=== PATIENT | female | born 1985 | race Caucasian/White ===

== ENCOUNTER → 2023-08-09 08:03 | Outpatient (REF) | payer BC, SELFPAY | LOC: PNTC 08:03 | PROVIDERS: ATTENDING PHYSICIAN Obstetrics & Gynecology | DX: Z36.0 Encounter for antenatal screening for chromosomal anomalies (principal); Z36.82 Encounter for antenatal screening for nuchal translucency; O35.8XX0 Maternal care for other (suspected) fetal abnormality and damage, not applicable or unspecified | CPT/HCPCS: 36415; 76801; 76813 ==

== ENCOUNTER → 2023-10-03 07:06 | Outpatient (REF) | payer BC, SELFPAY | LOC: PNTC 07:06 | PROVIDERS: ATTENDING PHYSICIAN Obstetrics & Gynecology | DX: O09.529 Supervision of elderly multigravida, unspecified trimester (principal); O35.5XX0 Maternal care for (suspected) damage to fetus by drugs, not applicable or unspecified | CPT/HCPCS: 76811 ==

== ENCOUNTER 2023-12-27 13:49 | Inpatient (IN) | payer BC, SELFPAY ==
[2023-12-27 14:19] VITALS: BP 137/84; BMI 28.7
[2023-12-27 14:31] LABS: % Basophils 0.5 % (0-2); % Immature Granulocytes 3.2 % (0-0.5); % Lymphocytes 13.9 % (20.5-51.1); % Monocytes 5.1 % (1.7-9.3); % Neutrophils 76.3 % (42.2-75.2); Absolute Basophils 0.1 10^3/uL (0-0.2); Absolute Eosinophils 0.2 10^3/uL (0-0.7); Absolute Immature Granulocytes 0.5 10^3/uL (0-0.05); Absolute Lymphocytes 2.1 10^3/uL (1.2-3.4); Absolute Monocytes 0.8 10^3/uL (0.1-0.6); Absolute Neutrophils 11.6 10^3/uL (1.4-6.5); Hematocrit 28.6 % (37.0-47.0); Hemoglobin 9.8 g/dL (12.0-16.0); Mean Corp Hgb Conc. 34.3 g/dL (33.0-37.0); Mean Corpuscular Hgb 28.7 pg (27.0-31.0); Mean Corpuscular Volume 83.9 fL (81.0-99.0); Mean Platelet Volume 13.5 fL (7.4-10.4); Nucleated Red Blood Cells % 0 %; Platelet Count 166 10^3/uL (130-400); Red Blood Cell Count 3.41 10^6/uL (4.20-5.40); Red Cell Dist. Width 13.8 % (11.5-14.5); White Blood Cell Count 15.2 10^3/uL (4.8-10.8)
[2023-12-27 14:36] LABS: ALT (SGPT) 16 U/L (0-35); AST (SGOT) 33 U/L (14-36); Albumin 3.4 g/dl (3.5-5.0); Alkaline Phosphatase 147 U/L (38-126); Blood Urea Nitrogen 21 mg/dl (7-17); Calcium 9.9 mg/dl (8.4-10.2); Carbon Dioxide 19 mmol/L (22-30); Chloride 104 mmol/L (98-107); Estimated Creatinine Clearance 91 ml/min; Glucose 87 mg/dl (70-99); Sodium 135 mmol/L (135-145); Total Bilirubin 0.3 mg/dl (0.2-1.3); eGFR > 60.00
[2023-12-27] MEDS: MORPHINE SULFATE 2 MG IV (15:27)
[2023-12-27 15:28] LABS: Urine Albumin 3+ (Neg - Trace); Urine Bilirubin 1+ (Negative); Urine Character Clear (Clear); Urine Color Yellow; Urine Glucose Negative (Negative); Urine Ketone Trace (Negative); Urine Leukocyte Trace (Negative); Urine Nitrite Negative (Negative); Urine Occult Blood 1+ (Negative); Urine Specific Gravity 1.025 (<1.030); Urine Urobilinogen Negative (Neg - 1+)
[2023-12-27] MEDS: CELESTONE SOLUSPAN 2 MG IM (15:30)
[2023-12-27 15:40] LABS: Urine Bacteria Many (Negative)
[2023-12-27 16:02] LABS: APTT 26.9 Sec (23.4-35.0); INR 0.97; PT 12.7 Sec (11.4-14.6)
[2023-12-27 16:03] LABS: Fibrinogen 388 MG/DL (199-459)
[2023-12-27] MEDS: ANCEF 10 IV (16:24)
[2023-12-27] MEDS: BICITRA 30 ML PO (16:24)
[2023-12-27] MEDS: TYLENOL 1000 MG PO (16:24)
[2023-12-27 16:57] LABS: Cord ABG Comment CORD BLOOD
[2023-12-27 16:58] LABS: B.E. Cord ABG -7.9 mMOL/L; HCO3 Cord ABG 22.1 mmol/L; O2 Saturation % Cord ABG 16.2 %; PCO2 Cord ABG 62 mmHg; PO2 Cord ABG 11 mmHg; pH Cord ABG 7.16
[2023-12-27 17:01] LABS: B.E. Cord ABG -9.3 mMOL/L; HCO3 Cord ABG 21.5 mmol/L; O2 Saturation % Cord ABG 10.9 %; PCO2 Cord ABG 66 mmHg; PO2 Cord ABG 8 mmHg; pH Cord ABG 7.12
[2023-12-27 18:14] LABS: Urine Protein 1720 mg/dl
[2023-12-27 18:35] LABS: Protein/creatinine Ratio 4.2
[2023-12-27] MEDS: MAGNESIUM SULFATE 100 IV (19:38)
[2023-12-27] MEDS: MAGNESIUM SULFATE 40 GRAM 1000 IV (20:06)
[2023-12-27] MEDS: CYMBALTA DELAYED RELEASE 60 MG PO (22:11)
[2023-12-27] MEDS: BUSPAR 10 MG PO (22:11)
[2023-12-27] MEDS: BENADRYL 25 MG PO (22:55)
[2023-12-28 01:48] LABS: Hematocrit 23.2 % (37.0-47.0); Hemoglobin 7.9 g/dL (12.0-16.0); Mean Corp Hgb Conc. 34.1 g/dL (33.0-37.0); Mean Corpuscular Volume 85.3 fL (81.0-99.0); Mean Platelet Volume 13.9 fL (7.4-10.4); Platelet Count 141 10^3/uL (130-400); Red Blood Cell Count 2.72 10^6/uL (4.20-5.40); Red Cell Dist. Width 13.8 % (11.5-14.5); White Blood Cell Count 19.3 10^3/uL (4.8-10.8)
[2023-12-28 01:55] LABS: Magnesium 5.4 mg/dl (1.6-2.3)
[2023-12-28] MEDS: BENADRYL 25 MG PO (05:45)
[2023-12-28] MEDS: MOTRIN 600 MG PO ×3 (05:45→20:48)
[2023-12-28 07:14] LABS: Hematocrit 21.4 % (37.0-47.0); Hemoglobin 7.3 g/dL (12.0-16.0); Mean Corp Hgb Conc. 34.1 g/dL (33.0-37.0); Mean Corpuscular Hgb 29.1 pg (27.0-31.0); Mean Corpuscular Volume 85.3 fL (81.0-99.0); Mean Platelet Volume 12.9 fL (7.4-10.4); Platelet Count 122 10^3/uL (130-400); Red Blood Cell Count 2.51 10^6/uL (4.20-5.40); White Blood Cell Count 16.7 10^3/uL (4.8-10.8)
[2023-12-28] MEDS: LR 1000 IV (08:00)
--- NOTE | 2023-12-28 12:40 | W.PN.ANS.POP ---
Anesthesia Post Operative
- Anesthesia Post Op Note
Vital Signs Stable-See Nursing Note: Yes
Airway Patent: Yes
Adequate Pain Control: Yes
Change in Mental Status: No
Current Postoperative Nausea & Vomiting: No
Anesthesia Complications: No
General Anesthetic Recall: No
Unplanned Admission: No
Post Op Hydration Adequate: Yes
[2023-12-28] MEDS: MAGNESIUM SULFATE 40 GRAM 1000 IV (15:21)
[2023-12-28 19:03] LABS: Hematocrit 22.1 % (37.0-47.0); Hemoglobin 7.5 g/dL (12.0-16.0); Mean Corp Hgb Conc. 33.9 g/dL (33.0-37.0); Mean Corpuscular Hgb 29.6 pg (27.0-31.0); Mean Corpuscular Volume 87.4 fL (81.0-99.0); Mean Platelet Volume 13.3 fL (7.4-10.4); Platelet Count 190 10^3/uL (130-400); Red Blood Cell Count 2.53 10^6/uL (4.20-5.40); Red Cell Dist. Width 14.3 % (11.5-14.5); White Blood Cell Count 17.9 10^3/uL (4.8-10.8)
[2023-12-28 19:14] LABS: ALT (SGPT) 18 U/L (0-35); AST (SGOT) 44 U/L (14-36); Albumin 3.2 g/dl (3.5-5.0); Alkaline Phosphatase 131 U/L (38-126); Blood Urea Nitrogen 14 mg/dl (7-17); Calcium 6.7 mg/dl (8.4-10.2); Carbon Dioxide 25 mmol/L (22-30); Chloride 102 mmol/L (98-107); Estimated Creatinine Clearance 91 ml/min; Glucose 119 mg/dl (70-99); LDH 421 U/L (120-246); Potassium 4.4 mmol/L (3.5-5.1); Sodium 134 mmol/L (135-145); Total Bilirubin 0.2 mg/dl (0.2-1.3); Total Protein 5.7 g/dl (6.3-8.2); eGFR > 60.00
[2023-12-28] MEDS: MYLICON 80 MG PO (20:48)
[2023-12-28] MEDS: TYLENOL 650 MG PO (20:49)
[2023-12-28] MEDS: BUSPAR 10 MG PO (22:20)
[2023-12-28] MEDS: CYMBALTA DELAYED RELEASE 60 MG PO (22:20)
[2023-12-29] MEDS: PERCOCET 5/325 1 TABLET PO ×4 (00:01→21:06)
[2023-12-29] MEDS: TYLENOL 650 MG PO (05:14)
[2023-12-29] MEDS: MOTRIN 600 MG PO ×4 (05:14→22:32)
[2023-12-29] MEDS: MYLICON 80 MG PO ×3 (05:14→22:32)
[2023-12-29 05:56] LABS: Hematocrit 21.5 % (37.0-47.0); Hemoglobin 7.4 g/dL (12.0-16.0); Mean Corp Hgb Conc. 34.4 g/dL (33.0-37.0); Mean Corpuscular Hgb 30.7 pg (27.0-31.0); Mean Corpuscular Volume 89.2 fL (81.0-99.0); Mean Platelet Volume 12.6 fL (7.4-10.4); Platelet Count 164 10^3/uL (130-400); Red Blood Cell Count 2.41 10^6/uL (4.20-5.40); Red Cell Dist. Width 14.6 % (11.5-14.5); White Blood Cell Count 17.2 10^3/uL (4.8-10.8)
[2023-12-29 06:10] LABS: ALT (SGPT) 18 U/L (0-35); AST (SGOT) 43 U/L (14-36); Albumin 3.2 g/dl (3.5-5.0); Alkaline Phosphatase 128 U/L (38-126); Blood Urea Nitrogen 20 mg/dl (7-17); Calcium 7.2 mg/dl (8.4-10.2); Carbon Dioxide 27 mmol/L (22-30); Chloride 103 mmol/L (98-107); Estimated Creatinine Clearance 81 ml/min; Glucose 86 mg/dl (70-99); LDH 441 U/L (120-246); Potassium 4.9 mmol/L (3.5-5.1); Sodium 138 mmol/L (135-145); Total Bilirubin 0.1 mg/dl (0.2-1.3); Total Protein 5.7 g/dl (6.3-8.2); eGFR > 60.00
[2023-12-29] MEDS: FEOSOL 325 MG PO (10:31)
[2023-12-29] MEDS: SENOKOT-S 1 TABLET PO (16:47)
[2023-12-29] MEDS: CYMBALTA DELAYED RELEASE 60 MG PO (22:31)
[2023-12-29] MEDS: BUSPAR 10 MG PO (22:32)
[2023-12-30] MEDS: TRANDATE 200 MG PO ×3 (00:45→19:54)
[2023-12-30] MEDS: PERCOCET 5/325 1 TABLET PO ×6 (01:14→23:58)
[2023-12-30] MEDS: MOTRIN 600 MG PO ×3 (04:25→19:17)
[2023-12-30 05:25] LABS: ALT (SGPT) 17 U/L (0-35); AST (SGOT) 37 U/L (14-36); Albumin 2.9 g/dl (3.5-5.0); Alkaline Phosphatase 108 U/L (38-126); Blood Urea Nitrogen 19 mg/dl (7-17); Carbon Dioxide 26 mmol/L (22-30); Chloride 107 mmol/L (98-107); Estimated Creatinine Clearance 91 ml/min; Glucose 80 mg/dl (70-99); Potassium 4.8 mmol/L (3.5-5.1); Sodium 142 mmol/L (135-145); Total Bilirubin 0.2 mg/dl (0.2-1.3); Total Protein 5.4 g/dl (6.3-8.2); eGFR > 60.00
[2023-12-30] MEDS: SENOKOT-S 1 TABLET PO (07:12)
[2023-12-30] MEDS: FEOSOL 325 MG PO (07:12)
[2023-12-30] MEDS: MYLICON 80 MG PO (11:00)
[2023-12-30 11:54] LABS: Syphilis/T. pallidum Ab Reflex Negative (Negative)
[2023-12-30] MEDS: CYMBALTA DELAYED RELEASE 60 MG PO (22:04)
[2023-12-30] MEDS: BUSPAR 10 MG PO (22:04)
[2023-12-31] MEDS: MYLICON 80 MG PO (00:07)
[2023-12-31] MEDS: PERCOCET 5/325 1 TABLET PO ×2 (04:04→10:38)
[2023-12-31] MEDS: TRANDATE 400 MG PO (06:50)
[2023-12-31] MEDS: MOTRIN 600 MG PO ×2 (06:54→15:14)
[2023-12-31] MEDS: TYLENOL 650 MG PO (15:14)
[2023-12-31] MEDS: FEOSOL 325 MG PO (15:17)
--- NOTE | 2023-12-31 16:00 | W.DS.TRANS ---
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
-
Discharge Instructions:
Discharge Diagnosis/Procedures Section
Diet No restrictions
Driving Restrictions No driving for 2 weeks
Instructions:
Stand-Alone Forms: LDRP Delivery
LDRP Hypertensive Disorders
Changes to Home Medications: Yes
Discharge Medications:
DC Medications w/original date entered in [employer]
Sangeeta Allergy 1 tab PO DAILY PRN ALLERGY 12/27/23
BuSpar 10 mg PO DAILY 12/27/23
Cymbalta 60 mg PO HS 12/27/23
melatonin 1 mg PO 1XD 12/27/23
acetaminophen 325 mg tablet 650 mg (2 x 325 mg) PO Q4HPRN PRN mild pain #0 tabs 12/30/23
ferrous sulfate 325 mg (65 mg iron) tablet (FeroSul) 325 mg PO DAILY #0 tabs 12/30/23
ibuprofen 600 mg tablet 600 mg PO Q6HPRN PRN cramps #45 tabs 12/30/23
oxycodone-acetaminophen 5 mg-325 mg tablet 1 tab PO Q4HPRN PRN moderate pain #15 tabs 12/30/23
sennosides 8.6 mg-docusate sodium 50 mg tablet 1 tab PO DAILYPRN PRN constipation #0 tabs 12/30/23
labetalol 200 mg tablet 400 mg (2 x 200 mg) PO BID #90 tabs 12/31/23
Home Medication Changes
Pending Results: No
--- NOTE | 2023-12-31 16:09 | W.DCSUMMARY ---
Discharge Summary
Discharge Data
Date of Admission: 12/27/23
Date of Discharge: 12/31/23
-
Pending Results: No
Hospital Course
Patient is a 38yo who present to labor and delivery on 12/26 with complaints of abdominal pain. While on labor and delivery, patient started having vaginal bleeding and there was a deceleration on the heart rate tracing. Patient was
diagnosed with a placental abruption and underwent primary low transverse section delivering a female infant. The section was uncomplicated. Placenta was noted to have a 25% abruption. Following the section, patient had
elevated blood pressures and was diagnosed with preeclampsia. She was given 24 hours of magnesium. On postoperative day three, she was noted to have elevated blood pressures and was started on labetalol 200mg twice daily. She was kept an
additional day to monitor her blood pressures. On postoperative day four, she had continued elevated blood pressures and labetalol was increased to 400mg twice daily. She was monitored until the afternoon and blood pressures were well controlled.
She was asymptomatic for preeclampsia. She was meeting all other postoperative and milestone. was doing well in NICU. Patient was deemed stable for discharge home. Discharge instructions and return precautions were discussed and
all questions answered prior to discharge. She was instructed to follow up on Tuesday for a blood pressure check, 2 weeks for an incision check, and in 6 weeks for her routine visit.
Discharge Plan
-
Patient Disposition: Home (Routine Discharge)
Discharge Diagnosis/Procedures: Section
Condition: Good
Diet: No restrictions
Driving Restrictions: No driving for 2 weeks
Stand Alone Forms: LDRP Delivery, LDRP Hypertensive Disorders
Referrals:
Quentin Spring MD [Active] - (please call the office to make a 2 week post-op visit to check the incision, followed by a 6 week visit)
UNKNOWN - PT NOT,INTERVIEWE [Family Provider] -
Prescriptions:
New
ferrous sulfate [FeroSul] 325 mg (65 mg iron) Tablet
325 mg PO DAILY Qty: 0 0RF
sennosides-docusate sodium 8.6-50 mg Tablet
1 tab PO DAILYPRN PRN (Reason: constipation) Qty: 0 0RF
oxycodone-acetaminophen 5-325 mg Tablet
1 tab PO Q4HPRN PRN (Reason: moderate pain) Qty: 15 0RF
ibuprofen 600 mg Tablet
600 mg PO Q6HPRN PRN (Reason: cramps) Qty: 45 0RF
acetaminophen 325 mg Tablet
650 mg PO Q4HPRN PRN (Reason: mild pain) Qty: 0 0RF
labetalol 200 mg Tablet
400 mg PO BID Qty: 90 0RF
Continued
melatonin capsule
1 mg PO 1XD
Sangeeta Allergy
1 tab PO DAILY PRN (Reason: ALLERGY)
BuSpar
10 mg PO DAILY
Cymbalta capsule
60 mg PO HS
Discharge Orders:
Discharge Patient (As Directed); Ordered 12/31/23
Ordered By: Mimi Holden
Discharge Date and Time
Print Language: KOREAN
== END 2023-12-31 16:36 | disposition home or self-care (01) | DRG 788 ==
LOC: LDRP 13:49
PROVIDERS: Obstetrics & Gynecology; ADMITTING PHYSICIAN Obstetrics & Gynecology
PROC: 10D00Z1 Extraction of Products of Conception, Low, Open Approach (ICD-10-PCS; 2023-12-27)
DX: O45.93 Premature separation of placenta, unspecified, third trimester (principal); O69.81X0 Labor and delivery complicated by cord around neck, without compression, not applicable or unspecified; O14.94 Unspecified pre-eclampsia, complicating childbirth; O76 Abnormality in fetal heart rate and rhythm complicating labor and delivery; Z3A.32 32 weeks gestation of pregnancy; Z37.0 Single live birth
CPT/HCPCS: 88307; 76816; 80053; 81003; 81015; 82570; 82803; 83615; 83735; 84156; 85025; 85027; 85384; 85460; 85610; 85730; 86780; 86850; 86900; 86901; 86920; 87070; 87086

== ENCOUNTER 2024-01-01 05:56 | Inpatient (IN) | payer BC, SELFPAY ==
[2024-01-01] VITALS (9 sets, daily range): BP systolic 115–194; BP diastolic 60–96; BMI 28.0
[2024-01-01 04:54] LABS: Hematocrit 20.6 % (37.0-47.0); Hemoglobin 6.8 g/dL (12.0-16.0); Mean Corpuscular Volume 90.7 fL (81.0-99.0); Mean Platelet Volume 11.2 fL (7.4-10.4); Platelet Count 224 10^3/uL (130-400); Red Blood Cell Count 2.27 10^6/uL (4.20-5.40); Red Cell Dist. Width 14.8 % (11.5-14.5); White Blood Cell Count 11.5 10^3/uL (4.8-10.8)
--- NOTE | 2024-01-01 05:00 | ED.GENMED ---
History of Present Illness
<Steph Zaragoza DO - Last Filed: 01/01/24 05:34>
General
Chief Complaint: Abdominal Pain
Time Seen by Provider: 01/01/24 05:00
<Trudi Jacobs MD, Resident - Last Filed: 01/01/24 05:40>
General
Source: patient and spouse
Exam Limitations: none
Nursing documentation reviewed up to this point in time: agreed with
History of Present Illness
History of Present Illness:
38-year-old female 101 with the recent on 12/27/2023 at 32 weeks gestation due to placental abruption and preeclampsia, was on magnesium for 24 hours, was discharged with home yesterday on 12/31/2023 with labetalol dose bumped to 400
from 200. Patient started having acute abdominal pain in the upper area of her stomach, sharp and shooting, 8/10 in intensity with elevated up to 188/109 with headache and associated nausea at about 2 AM in the morning today. Last dose of
labetalol was taken around 8:30 PM in the night. She stated that her pain has improved to 5/10 in intensity, her headache and nausea lasted only for few minutes along with her high blood pressure and abdominal pain but then eventually got better.
Currently patient denies having any chest pain, palpitations, shortness of breath, headaches, nausea, blurring of vision or flashes in the vision, weakness in her arms or legs, altered sensation. Her abdominal pain is not accompanied by any
bloating or belching or abdominal distention.
She reports to have mild lochia, use of only 1 pad a day.
Upon arrival to the ER her blood pressure was at 179/90, pulse was at 60, she is tachypneic at 26, afebrile and satting 100% on room air.
Past History
<Trudi Jacobs MD, Resident - Last Filed: 01/01/24 05:40>
Past History
ED Past Medical History: Other (Gestational hypertension, preeclampsia, placental abruption, )
ED Past Surgical History: (On 12/27/2023)
Patient has exhibited threatening behavior?: No
PSI?: No
Social History
Tobacco: Non-smoker
Alcohol: None
Drug: None
Personal:
Living: with family
Employment: Employed
Family History
Family History: Unable to obtain
Review of Systems
<Trudi Jacobs MD, Resident - Last Filed: 01/01/24 05:40>
Review of Systems
Allergies reviewed?: Yes
Constitutional: Reports no symptoms
EENT: Reports no symptoms
Respiratory: Reports no symptoms
ABD/GI: Reports abdominal pain; Denies nausea, diarrhea, constipated or bloody stools
: Reports no symptoms
Musculoskeletal: Reports no symptoms
Skin: Reports no symptoms
Neurological: Reports no symptoms
Endocrine: Reports no symptoms
Hematologic/Lymphatic: Reports no symptoms
Psychiatric: Reports no symptoms
Phy Exam
<Trudi Jacobs MD, Resident - Last Filed: 01/01/24 05:40>
General Physical Exam
General Presentation: well appearing and no apparent distress
General Skin: warm
General Habitus: normal
General Mental: alert
General Hydration: dry mucous membranes
General Chronic Disability: contractures
ENT Exam
ENT Exam: EOMI and TM's normal
Eye Exam
Eye Exam: PERRL, EOMI and other (Funduscopic exam normal.)
Cardiovascular Exam
Cardiovascular Exam: regular rate/rhythm, no edema, no gallop, no murmur and normal peripheral pulses
Heart Sounds: normal
Pulmonary Exam
Pulmonary Exam: lungs clear, no respiratory distress, no rales, no crackles and no rhonchi
Gastrointestinal Exam
Gastrointestinal Exam: normal bowel sounds, non tender, soft and other (Mildly distended abdomen with mild tenderness to palpation in the epigastric and right upper quadrant areas.)
Abdominal Scars: other (Pfannenstiel scar)
Neurological Exam
Neurological Exam: alert, oriented x3, CN II-XII intact, no motor deficits, no sensory deficits and other (I have not performed reflexes on the patient but per my attending patient has hyperreflexia.)
Musculoskeletal Exam
Musculoskeletal Exam: full ROM
Skin Exam
Skin Exam: normal color
Psychiatric Exam
Psychiatric Exam: normal mood/affect
Course
<Steph Zaragoza, DO - Last Filed: 01/01/24 05:34>
Orders/Labs/Results
Orders:
Orders
01/01/24 03:59
CONSULT Urgent
Comment: .
IV Insert/Care/Rem.- Treatment NOW
01/01/24 04:22
Complete Blood Count/With Diff Urgent
Comprehensive Metabolic Panel Urgent
Abnormal Lab Results
01/01/24
04:22
WBC 11.5 H 10^3/uL
(4.8-10.8)
RBC 2.27 L 10^6/uL
(4.20-5.40)
Hgb 6.8 L* g/dL
(12.0-16.0)
Hct 20.6 L* %
(37.0-47.0)
RDW 14.8 H %
(11.5-14.5)
MPV 11.2 H fL
(7.4-10.4)
Calcium 10.3 H D mg/dl
(8.4-10.2)
AST 48 H U/L
(14-36)
Total Protein 6.0 L g/dl
(6.3-8.2)
Albumin 3.3 L g/dl
(3.5-5.0)
01/01/24 04:22
01/01/24 04:22
Vital Signs
Initial and Last Documented VS:
Initial Vital Signs
Temp Pulse Resp BP Pulse Ox
97.8 F 60 26 179/90 100
01/01/24 03:50 01/01/24 03:50 01/01/24 03:50 01/01/24 03:50 01/01/24 03:50
Last Documented Vital Signs
Temp Pulse Resp BP Pulse Ox
97.8 F 59 26 174/93 98
01/01/24 03:50 01/01/24 05:04 01/01/24 03:50 01/01/24 05:04 01/01/24 05:04
<Trudi Jacobs MD, Resident - Last Filed: 01/01/24 05:40>
Orders/Labs/Results
Orders:
Orders
01/01/24 03:59
CONSULT Urgent
Comment: .
IV Insert/Care/Rem.- Treatment NOW
01/01/24 04:22
Complete Blood Count/With Diff Urgent
Comprehensive Metabolic Panel Urgent
Abnormal Lab Results
01/01/24
04:22
WBC 11.5 H 10^3/uL
(4.8-10.8)
RBC 2.27 L 10^6/uL
(4.20-5.40)
Hgb 6.8 L* g/dL
(12.0-16.0)
Hct 20.6 L* %
(37.0-47.0)
RDW 14.8 H %
(11.5-14.5)
MPV 11.2 H fL
(7.4-10.4)
Calcium 10.3 H D mg/dl
(8.4-10.2)
AST 48 H U/L
(14-36)
Total Protein 6.0 L g/dl
(6.3-8.2)
Albumin 3.3 L g/dl
(3.5-5.0)
01/01/24 04:22
01/01/24 04:22
Vital Signs
Initial and Last Documented VS:
Initial Vital Signs
Temp Pulse Resp BP Pulse Ox
97.8 F 60 26 179/90 100
01/01/24 03:50 01/01/24 03:50 01/01/24 03:50 01/01/24 03:50 01/01/24 03:50
Last Documented Vital Signs
Temp Pulse Resp BP Pulse Ox
97.8 F 59 26 174/93 98
01/01/24 03:50 01/01/24 05:04 01/01/24 03:50 01/01/24 05:04 01/01/24 05:04
<Trudi Jacobs MD, Resident - Last Filed: 01/01/24 05:40>
*Critical Care Note
Total Time (30-74mins, 75-104mins- exclusive of procedures): Not Applicable
<Trudi Jacobs MD, Resident - Last Filed: 01/01/24 05:40>
Update Note
Update Note:
Touch base with OB attending oil and gas exploration technician. OB attending oil and gas exploration technician requested for transfer of patient accepted to OB service. Patient is being admitted under OB service.
ED Attending Note
<Steph Zaragoza DO - Last Filed: 01/01/24 05:34>
ED Attending Note
Patient seen and examined by attending physician: Yes
I performed a history and physical exam of patient and discussed management with resident, I reviewed resident's note and agree with documented findings and plan of care.: Yes
ED Attending Note:
38-year-old woman who underwent emergent on December 26 at 32 weeks 3 days due to placental abruption. She developed hypertension, initially treated with IV magnesium and then started on IV labetalol, titrated to 400
mg twice daily and was kept an additional day, discharged to home yesterday due to persistent hypertension. BP improved, discharged yesterday but patient states tonight she has had some persistent upper abdominal pain over the past few hours with
persistently elevated blood pressure, 170-180 systolic. She does admit to very mild headache now but has not had headaches previously, no vision difficulty. No chest pain or palpitations. No nausea nor vomiting.
She did not call her MIXER LEVER OPERATOR but came straight to the ED.
Lochia has been very mild. No lower abdominal pain. She has been urinating without difficulty. She denies dizziness nor lightheadedness. No palpitations.
38-year-old woman appears her stated age. She is bright and alert, pleasant, appears in no acute distress. Moderate pallor noted.
Moderate hypertension
heart is regular rate and rhythm.
Lungs are clear to auscultation, respirations are easy and nonlabored.
Abdomen is soft, mild epigastric tenderness to palpation. No rebound or guarding.
Scant pretibial edema bilateral lower extremities. Peripheral pulses are full and equal.
Mild hyperreflexia. Reflexes are +3/4 bilateral.
Concern for progression of preeclampsia.
Labs are notable for significant anemia with hemoglobin of 6.8, was 7.4 on December 28. Patient has had no symptoms of symptomatic anemia.
Case discussed with MIXER LEVER OPERATOR who request patient be transferred to labor and delivery now for further evaluation.
<Trudi Jacobs MD, Resident - Last Filed: 01/01/24 05:40>
-
Portions of this chart may have been created with voice recognition software.� Occasional wrong word or��sound alike� substitutions may have occurred due to the inherent limitations of voice recognition software.
Discharge Plan
Departure
Patient Disposition: Admit
Date of Disposition: 01/01/24
Time of Disposition: 05:37
Admit to doctor: Mimi Holden
Presentation/result/management discussed w/ accepting MD/DO: Obstetrics, gynecology
Patient with high blood pressure during this ER visit?: Yes
Discharge Problem:
induced hypertension, , Hypertension in , preeclampsia, severe, condition
Prescriptions:
No Action
melatonin capsule
1 mg PO 1XD
Sangeeta Allergy
1 tab PO DAILY PRN (Reason: ALLERGY)
BuSpar
10 mg PO DAILY
Cymbalta capsule
60 mg PO HS
ferrous sulfate [FeroSul] 325 mg (65 mg iron) Tablet
325 mg PO DAILY Qty: 0 0RF
sennosides-docusate sodium 8.6-50 mg Tablet
1 tab PO DAILYPRN PRN (Reason: constipation) Qty: 0 0RF
ibuprofen 600 mg Tablet
600 mg PO Q6HPRN PRN (Reason: cramps) Qty: 45 0RF
acetaminophen 325 mg Tablet
650 mg PO Q4HPRN PRN (Reason: mild pain) Qty: 0 0RF
labetalol 200 mg Tablet
400 mg PO BID Qty: 90 0RF
Interventions
Interventions:
*Risk Screen - Suicide Last Done: 01/01/24 03:50
*General Assessment Last Done: 01/01/24 03:50
*Neglect/Abuse Screening Last Done: 01/01/24 03:50
ED- Fall Risk Assessment Last Done: 01/01/24 03:50
*ED COVID-19 Vaccine History Last Done: 01/01/24 03:50
RJ-Sismmp-Sebbxijudy Assessment Last Done: 01/01/24 04:30
ED- Cardiac Assessment Last Done: 01/01/24 04:30
ED- Neurological Assessment Last Done: 01/01/24 04:30
ED- Pulmonary Assessment Last Done: 01/01/24 04:30
Discharge Date and Time
Print Language: ICELANDIC
[2024-01-01 05:01] LABS: ALT (SGPT) 29 U/L (0-35); AST (SGOT) 48 U/L (14-36); Albumin 3.3 g/dl (3.5-5.0); Alkaline Phosphatase 109 U/L (38-126); Blood Urea Nitrogen 17 mg/dl (7-17); Calcium 10.3 mg/dl (8.4-10.2); Carbon Dioxide 25 mmol/L (22-30); Chloride 106 mmol/L (98-107); Glucose 87 mg/dl (70-99); Potassium 4.8 mmol/L (3.5-5.1); Sodium 140 mmol/L (135-145); Total Bilirubin 0.3 mg/dl (0.2-1.3); eGFR > 60.00
[2024-01-01 05:35] LABS: Segmented Neutrophils 71 % (42-75)
[2024-01-01 05:36] LABS: Absolute Neutrophils -Man Diff 8.5 10^3/uL (1.4-6.5); Band Neutrophils 3 % (0-3); Eosinophils 1 % (0-6); Lymphocytes 18 % (20-51); Metamyelocytes 5 % (-); Monocytes 2 % (2-9); Normal RBC Morphology No; Nucleated Red Blood Cells 2 (-); Platelets Checked Yes
[2024-01-01 05:37] LABS: Anisocytosis Slight; Hypochromasia Slight; Polychromasia Slight
[2024-01-01 05:38] LABS: Total Cells Counted 100
[2024-01-01] MEDS: APRESOLINE 10 MG IV (06:00)
[2024-01-01] MEDS: PEPCID 20 MG IV (06:13)
[2024-01-01] MEDS: PROCARDIA XL (EXTENDED RELEASE) 60 MG PO (06:24)
[2024-01-01] MEDS: MOTRIN 600 MG PO ×2 (07:27→13:40)
[2024-01-01] MEDS: FEOSOL PO (08:30)
[2024-01-01] MEDS: BENADRYL 50 MG PO (09:19)
[2024-01-01] MEDS: TYLENOL 1000 MG PO ×2 (09:19→16:26)
[2024-01-01] MEDS: ROXICODONE 5 MG PO ×3 (12:28→20:38)
[2024-01-01] MEDS: MAGNESIUM SULFATE 100 IV (12:30)
[2024-01-01] MEDS: LR 1000 IV (12:30)
[2024-01-01] MEDS: MAGNESIUM SULFATE 40 GRAM 1000 IV (12:55)
[2024-01-01 12:59] LABS: Hematocrit 24.4 % (37.0-47.0); Hemoglobin 8.4 g/dL (12.0-16.0); Mean Corp Hgb Conc. 34.4 g/dL (33.0-37.0); Mean Corpuscular Hgb 29.8 pg (27.0-31.0); Mean Corpuscular Volume 86.5 fL (81.0-99.0); Mean Platelet Volume 10.7 fL (7.4-10.4); Platelet Count 258 10^3/uL (130-400); Red Blood Cell Count 2.82 10^6/uL (4.20-5.40); Red Cell Dist. Width 14.8 % (11.5-14.5); White Blood Cell Count 13.1 10^3/uL (4.8-10.8)
[2024-01-01 13:02] LABS: ALT (SGPT) 28 U/L (0-35); AST (SGOT) 44 U/L (14-36); Albumin 3.5 g/dl (3.5-5.0); Alkaline Phosphatase 105 U/L (38-126); Blood Urea Nitrogen 12 mg/dl (7-17); Calcium 9.8 mg/dl (8.4-10.2); Carbon Dioxide 25 mmol/L (22-30); Chloride 108 mmol/L (98-107); Estimated Creatinine Clearance 80 ml/min; Glucose 89 mg/dl (70-99); Potassium 4.7 mmol/L (3.5-5.1); Sodium 143 mmol/L (135-145); Total Bilirubin 0.6 mg/dl (0.2-1.3); Total Protein 6.2 g/dl (6.3-8.2); eGFR > 60.00
[2024-01-01] MEDS: PROCARDIA XL (EXTENDED RELEASE) PO (13:58)
[2024-01-01] MEDS: ATARAX 50 MG PO (14:03)
[2024-01-01] MEDS: BUSPAR 10 MG PO (20:38)
[2024-01-01] MEDS: CYMBALTA DELAYED RELEASE 60 MG PO (20:38)
[2024-01-02] MEDS: LR 1000 IV (02:00)
[2024-01-02] MEDS: ROXICODONE 5 MG PO ×5 (04:16→22:13)
[2024-01-02 04:42] LABS: Hematocrit 28.7 % (37.0-47.0); Hemoglobin 9.7 g/dL (12.0-16.0); Mean Corp Hgb Conc. 33.8 g/dL (33.0-37.0); Mean Corpuscular Volume 88.9 fL (81.0-99.0); Mean Platelet Volume 10.5 fL (7.4-10.4); Platelet Count 281 10^3/uL (130-400); Red Blood Cell Count 3.23 10^6/uL (4.20-5.40); Red Cell Dist. Width 14.9 % (11.5-14.5); White Blood Cell Count 10.6 10^3/uL (4.8-10.8)
[2024-01-02 05:08] LABS: ALT (SGPT) 26 U/L (0-35); AST (SGOT) 39 U/L (14-36); Albumin 3.6 g/dl (3.5-5.0); Alkaline Phosphatase 140 U/L (38-126); Blood Urea Nitrogen 9 mg/dl (7-17); Calcium 7.9 mg/dl (8.4-10.2); Carbon Dioxide 28 mmol/L (22-30); Chloride 100 mmol/L (98-107); Estimated Creatinine Clearance 90 ml/min; Glucose 92 mg/dl (70-99); Potassium 4.5 mmol/L (3.5-5.1); Sodium 138 mmol/L (135-145); Total Bilirubin 0.6 mg/dl (0.2-1.3); Total Protein 6.3 g/dl (6.3-8.2); eGFR > 60.00
[2024-01-02] MEDS: MAGNESIUM SULFATE 40 GRAM 1000 IV (08:06)
[2024-01-02] MEDS: PROCARDIA XL (EXTENDED RELEASE) 60 MG PO (08:14)
[2024-01-02] MEDS: FEOSOL 325 MG PO (08:16)
[2024-01-02] MEDS: MOTRIN 600 MG PO ×2 (12:31→18:05)
[2024-01-02] MEDS: BUSPAR 10 MG PO (22:06)
[2024-01-02] MEDS: SENOKOT-S 1 TABLET PO (22:06)
[2024-01-02] MEDS: CYMBALTA DELAYED RELEASE 60 MG PO (22:06)
[2024-01-03] MEDS: ROXICODONE 5 MG PO ×3 (02:23→10:41)
[2024-01-03] MEDS: MOTRIN 600 MG PO ×2 (02:23→10:04)
[2024-01-03 06:09] LABS: Hematocrit 27.5 % (37.0-47.0); Hemoglobin 9.1 g/dL (12.0-16.0); Mean Corp Hgb Conc. 33.1 g/dL (33.0-37.0); Mean Corpuscular Hgb 29.4 pg (27.0-31.0); Mean Corpuscular Volume 88.7 fL (81.0-99.0); Mean Platelet Volume 10.2 fL (7.4-10.4); Platelet Count 313 10^3/uL (130-400); Red Cell Dist. Width 15.3 % (11.5-14.5); White Blood Cell Count 11.5 10^3/uL (4.8-10.8)
[2024-01-03 06:40] LABS: ALT (SGPT) 21 U/L (0-35); AST (SGOT) 29 U/L (14-36)
[2024-01-03] MEDS: FEOSOL 325 MG PO (08:08)
[2024-01-03] MEDS: PROCARDIA XL (EXTENDED RELEASE) 60 MG PO (08:08)
--- NOTE | 2024-01-03 10:45 | CON.CAR ---
Addendum entered and electronically signed by Nikolay Suero MD 01/03/24 14:33:
38 yo female with PMH of placental abruption is admitted with post pre-eclampsia with severe features. We are consulted for BP management. Exam with RRR, no murmurs, no edema. EKG with NSR, possible DELMY.
She is currently on nifedipine XL 60mg daily. BP is mildly above goal of 140/90. Will add back labetalol at dose of 200mg bid. Patient will monitor BP at home, and also follow up with us in office.
Hopefully, we will be able to wean off of meds over time.
Original Note:
Consultation
Consultation Request
Date/Time Consultation Requested: 01/03/2024 09:10
Date/Time Consultation Performed: 01/03/2024 10:15
Requesting Provider: Dr. Quentin Spring
Performing Provider: DION Blanton for Dr. Suero
Reason for Consultation: Preeclampsia
Medical History
-
Chief Complaint: Elevated blood pressure
History of Present Illness:
Ange Solano is a 38-year-old female with a past medical history of a seizure in 2006 presented to the emergency department with elevated blood pressure. She endorsed associated abdominal pain, headache, and nausea. She presented to labor and
delivery 12/27/2023 with abdominal pain. While on the unit she was started having vaginal bleeding. Deceleration heart rate tracings were noted. She was diagnosed with placental abruption and underwent . was
uncomplicated but she did require postoperative blood transfusion. Post she was found to have elevated blood pressure. She was given 24 hours of magnesium. Cardiology was asked to consult for blood pressure management.
The patient's daughter is doing well in the NICU.
Past Medical History
Past Medical History: Seizures (2006)
Past Surgical History: (12/27/2023)
Social History
Tobacco: Non-Smoker
Alcohol: None
Drug: None
Personal:
Living: With Family
Employment: Not Employed
Family History
Family History: Reviewed & Not Pertinent (Father with dyslipidemia. No family history of premature CAD nor SCD.)
Allergies / Home Medications
Allergy/AdvReac Type Severity Reaction Status Date / Time
No Known Allergies Allergy Verified 01/01/24 04:48
�Medication �Instructions �Recorded �Confirmed �Type
Sangeeta Allergy 1 tab PO DAILY PRN ALLERGY 12/27/23 01/01/24 History
BuSpar 10 mg PO DAILY Mental 12/27/23 01/01/24 History
Health/Anxiety
Cymbalta 60 mg PO HS Depression 12/27/23 01/01/24 History
melatonin 1 mg PO 1XD Sleep 12/27/23 01/01/24 History
acetaminophen 325 mg tablet 650 mg (2 x 325 mg) PO Q4HPRN PRN 12/30/23 01/01/24 Rx
mild pain #0 tabs
ferrous sulfate 325 mg (65 mg 325 mg PO DAILY #0 tabs 12/30/23 01/01/24 Rx
iron) tablet (FeroSul)
ibuprofen 600 mg tablet 600 mg PO Q6HPRN PRN cramps #45 12/30/23 01/01/24 Rx
tabs
sennosides 8.6 mg-docusate sodium 1 tab PO DAILYPRN PRN constipation 12/30/23 01/01/24 Rx
50 mg tablet #0 tabs
labetalol 200 mg tablet 400 mg (2 x 200 mg) PO BID #90 tabs 12/31/23 01/01/24 Rx
Review of Systems
-
History Source: Patient
Constitutional: Fatigue
EENT: No Symptoms
Respiratory: No Symptoms
Cardiac: No Symptoms
Abdomen/GI: Abdominal Pain
: No Symptoms
Musculoskeletal: Edema
Skin: No Symptoms
Neurological: No Symptoms
Endocrine: No Symptoms
Hematologic/Lymphatic: No Symptoms
Physical Exam
Vital Signs
Temp Pulse Resp BP Pulse Ox
98.6 F 75 18 145/87 98
01/01/24 09:00 01/03/24 08:08 01/01/24 09:00 01/03/24 08:08 01/01/24 09:00
Lab Results
01/03/24 05:29
01/02/24 04:17
Physical Exam
General: Well Developed, Well Nourished, No Apparent Distress and Comfortable
HEENT: Normocephalic and Moist Mucous Membranes
Respiratory: Clear and Non Labored Respirations
Cardiac: S1/S2, Regular Rhythm and Peripheral Edema (Trace lower extremity edema)
Breast: Deferred by me
GI: Soft, Non Tender, Non Distended and Normal Bowel Sounds
Rectal: Deferred by Provider
Genito-urinary: No Costovertebral Tender
Musculoskeletal: No Clubbing and No Cyanosis
Skin: Warm
Neuro: AO x 3
Hematologic/Lymphatic: No Lymphadenopathy
Psych: Calm
Impression / Plan
-
Preeclampsia
-She denies PMH of hypertension
-Post she had elevated blood pressure and was started on 24 hours of magnesium
-POD #3 started on labetalol 200 mg twice daily
-POD #4 labetalol 400 mg twice daily
-BP at the time of medication administration (nifedipine 60 mg) this morning 145/87
Placental abruption status post 12/27/2023
Placental abruption with hemorrhage status post blood transfusion
Prior seizure, 2006
Data Reviewed
-
Labs: Labs Reviewed by me
[2024-01-03] MEDS: TRANDATE 200 MG PO (12:12)
== END 2024-01-03 13:30 | disposition home or self-care (01) | DRG 776 ==
LOC: LDRP 05:56
PROVIDERS: Obstetrics & Gynecology; ADMITTING PHYSICIAN Student in an Organized Health Care Education/Training Program; CONSULT PHYSICIAN Internal Medicine; EMERGENCY PHYSICIAN Emergency Medicine
PROC: 30233N1 Transfusion of Nonautologous Red Blood Cells into Peripheral Vein, Percutaneous Approach (ICD-10-PCS; 2024-01-01)
DX: O14.15 Severe pre-eclampsia, complicating the puerperium (principal); O90.81 Anemia of the puerperium; O99.345 Other mental disorders complicating the puerperium; F41.9 Anxiety disorder, unspecified; F32.A Depression, unspecified; Z79.899 Other long term (current) drug therapy
CPT/HCPCS: 80053; 84450; 84460; 85025; 85027; 86850; 86900; 86901; 86920; 93005; 99285; P9016